=== PATIENT | male | born 1950 | race Two or more races ===

== ENCOUNTER → 2022-08-25 | Outpatient (CLI) | payer MEDICAID | END | disposition home or self-care (01) | LOC: LAB 09:45 | PROVIDERS: ATTEND Internal Medicine Pulmonary Disease | DX: Z01.812 Encounter for preprocedural laboratory examination (principal); Z20.822 Contact with and (suspected) exposure to COVID-19 | CPT/HCPCS: 36415; 87426 ==

== ENCOUNTER → 2022-08-26 | Outpatient (CLI) | payer MEDICAID ==
[~2022-08-26] MED LIST: ALBUTEROL MEDNEB 2.5 mg/3ml NEB ONE
== END | disposition home or self-care (01) ==
LOC: RT 07:50
PROVIDERS: ATTEND Internal Medicine Pulmonary Disease
DX: J44.9 Chronic obstructive pulmonary disease, unspecified (principal); R06.00 Dyspnea, unspecified
CPT/HCPCS: 94060; 94727; 94729

== ENCOUNTER 2023-01-06 11:26 | Inpatient (IN) | payer MEDICAID ==
[~2023-01-06] VITALS: Ht 160 cm; Wt 72.0 kg
[2023-01-06 12:08] LABS: Basophils # (auto) 0.1 10 ^3/uL (0-0.2); Basophils % (auto) 0.7 % (0.0-2.0); Eosinophils # (auto) 0.1 10 ^3/uL (0-0.8); Eosinophils % (auto) 1.3 % (0.0-7.0); Hematocrit 48.9 % (41.0-53.0); Hemoglobin 16.2 g/dL (13.5-17.5); Lymphocytes # (auto) 1.5 10 ^3/uL (0.4-5.4); Lymphocytes % (auto) 19.8 % (10.0-50.0); Mean Corpuscular Hgb Conc. 33.1 g/dL (32.0-36.0); Mean Corpuscular Volume 96.7 fL (80.0-100.0); Monocytes # (auto) 0.6 10 ^3/uL (0-1.3); Monocytes % (auto) 7.7 % (0.0-12.0); Neutrophils # (auto) 5.3 10 ^3/uL (1.6-8.6); Neutrophils % (auto) 70.5 % (37.0-80.0); Nucleated Red Blood Cells % 0.2 %; Red Blood Cells 5.06 10^6/uL (4.5-5.90); Red Cell Distribution Width 14.8 % (11.8-14.3); White Blood Cell 7.5 10^3/uL (4.4-10.8)
[2023-01-06] MEDS ORDERED: FUROSEMIDE 40 MG/4 ML VIAL IV ONE (12:45)
[2023-01-06 12:50] LABS: Albumin 3.6 g/dL (3.4-5.0); Calcium 8.8 mg/dL (8.5-10.1); Potassium 4.3 mmol/L (3.5-5.1)
[2023-01-06 12:53] LABS: BUN/Creatinine Ratio 18.3 (10.0-20.0); Total Protein 8.1 g/dL (6.4-8.2)
[2023-01-06] MEDS ORDERED: DexAMETHasone SOD PHOS 10MG/1ML VIAL INJ IV ONE (13:15)
[2023-01-06] MEDS ORDERED: AZITHROMYCIN 500MG/ 250ML 250 ML IV ONE (13:15)
[2023-01-06] MEDS ORDERED: cefTRIAXone 1GM/50ML D5W 50 ML IV ONE (13:15)
[2023-01-06] MEDS ORDERED: MORPHINE SULFATE INJ 2 MG/ml SYRG IV PRN (13:30)
[2023-01-06] MEDS ORDERED: NITROGLYCERIN 0.4 MG SL TAB SL PRN (13:30)
[2023-01-06] MEDS ORDERED: DILT-14 PO (13:55)
[2023-01-06] MEDS ORDERED: ROSU10TA64 PO (13:56)
[2023-01-06] MEDS ORDERED: ENAL1TAB48 PO (13:56)
[2023-01-06] MEDS ORDERED: FLUT1AER3 PO (13:56)
[2023-01-06] MEDS ORDERED: IPRATROPIUM BROM 0.5 MG/2.5ML INH SOL NEB PRN (14:00)
[2023-01-06] MEDS ORDERED: ALBUTEROL SULF 2.5 MG/0.5ML(0.5%) NEB SOLN NEB PRN (14:00)
[2023-01-06] MEDS ORDERED: DEXTROSE (50%) 50ML SYRG IV PRN (14:15)
[2023-01-06] MEDS: CLINDAMYCIN 300MG IV 50 ML IV SCH ×2 (15:59→22:27)
[2023-01-06 16:45] LABS: Urine Bacteria NONE SEEN /hpf (None Seen); Urine Blood Negative /uL (Negative); Urine Specific Gravity 1.009 (1.001-1.035); Urine WBC <1 /hpf (0 - 3)
[2023-01-06 17:34] LABS: Alcohol, Urine < 3.0 mg/dL (0-10); Amphetamine Screen, Urine NEGATIVE (NEGATIVE); Barbiturate Scree,Urine NEGATIVE (NEGATIVE); Benzodiazephine Screen, Urine NEGATIVE (NEGATIVE); Cannabinoid Screen, Urine NEGATIVE (NEGATIVE); Cocaine Screen, Urine NEGATIVE (NEGATIVE); Opiate Scree,Urine NEGATIVE (NEGATIVE); Phencyclidine Screen, Urine NEGATIVE (NEGATIVE)
[2023-01-06] MEDS: ACCU-CHEK COMFORT CURVE STRIP VI SCH ×2 (17:46→22:09)
[2023-01-06] MEDS: InsuLIN REG 1unit/0.01ml Soln (100units/ml) SC SCH ×2 (18:18→22:28)
[2023-01-06] MEDS ORDERED: IOHEXOL 350 MG/ML 100ML IJ ONE (18:30)
[2023-01-06] MEDS: ATORVASTATIN 20 MG TAB PO SCH (22:29)
[2023-01-07 02:22] VITALS: BP 126/87
[2023-01-07] MEDS: CLINDAMYCIN 300MG IV 50 ML IV SCH ×3 (06:15→22:11)
[2023-01-07 06:37] LABS: Basophils # (auto) 0 10 ^3/uL (0-0.2); Basophils % (auto) 0.1 % (0.0-2.0); Eosinophils # (auto) 0 10 ^3/uL (0-0.8); Hematocrit 45.3 % (41.0-53.0); Hemoglobin 15.3 g/dL (13.5-17.5); Lymphocytes # (auto) 0.8 10 ^3/uL (0.4-5.4); Lymphocytes % (auto) 24.6 % (10.0-50.0); Mean Corpuscular Hemoglobin 32.4 pg (28.0-32.0); Mean Corpuscular Hgb Conc. 33.7 g/dL (32.0-36.0); Mean Corpuscular Volume 96.2 fL (80.0-100.0); Monocytes # (auto) 0.1 10 ^3/uL (0-1.3); Monocytes % (auto) 3.2 % (0.0-12.0); Neutrophils # (auto) 2.3 10 ^3/uL (1.6-8.6); Neutrophils % (auto) 72.1 % (37.0-80.0); Nucleated Red Blood Cells % 0.2 %; Red Blood Cells 4.71 10^6/uL (4.5-5.90); Red Cell Distribution Width 14.6 % (11.8-14.3); White Blood Cell 3.2 10^3/uL (4.4-10.8)
[2023-01-07 06:48] LABS: Potassium 3.9 mmol/L (3.5-5.1)
[2023-01-07] MEDS: InsuLIN REG 1unit/0.01ml Soln (100units/ml) SC SCH ×4 (06:50→22:16)
[2023-01-07] MEDS: ACCU-CHEK COMFORT CURVE STRIP VI SCH ×4 (06:50→22:16)
[2023-01-07 07:02] LABS: Albumin 3.2 g/dL (3.4-5.0); BUN/Creatinine Ratio 20.3 (10.0-20.0); Bilirubin, Total 0.8 mg/dL (0.2-1.0); Calcium 8.8 mg/dL (8.5-10.1); Total Protein 7.8 g/dL (6.4-8.2)
[2023-01-07 09:04] LABS: Hepatitis B Surface Antibody Positive (Negative)
[2023-01-07] MEDS: cefTRIAXone 1GM/50ML D5W 50 ML IV SCH (09:52)
[2023-01-07] MEDS ORDERED: ENALAPRIL MALEATE 10 MG TAB PO SCH (10:00)
[2023-01-07] MEDS ORDERED: FUROSEMIDE 20 MG/2 ML VIAL IV SCH (10:00)
[2023-01-07] MEDS ORDERED: dilTIAZem 120MG ER CAP PO SCH (10:00)
[2023-01-07] MEDS: Fluticasone-Umeclidinium-Vilan (Trelegy Ellipta 100-62.5-25 Mcg/I PO SCH (10:00)
[2023-01-07] MEDS: PANTOPRAZOLE 40 MG/10 ML VIAL INJ IV SCH (11:39)
[2023-01-07] MEDS ORDERED: METOPROLOL TARTRATE 1MG/1ML-5ML VIAL IV PRN (14:00)
[2023-01-07] MEDS ORDERED: dilTIAZem HCL 50 MG/10 ML VIAL IV ONE (15:00)
[2023-01-07] MEDS ORDERED: methylPREDNISolone SOD SUCC 40 MG/ML VL IV ONE (15:45)
[2023-01-07] MEDS ORDERED: DIGOXIN (250MCG/ML) 2 ML AMPULE IV ONE (16:15)
[2023-01-07] MEDS ORDERED: ENOXAPARIN SOD 80 MG/0.8ML SYRINGE SC ONE (16:30)
[2023-01-07] MEDS ORDERED: METOPROLOL TARTRATE 1MG/1ML-5ML VIAL IV ONE (21:30)
[2023-01-07] MEDS ORDERED: METOPROLOL TARTRATE 25 MG TAB PO SCH (22:00)
[2023-01-07] MEDS: SACUBITRIL-VALSARTAN 24mg/26mg TAB PO SCH (22:11)
[2023-01-07] MEDS: CARVEDILOL 3.125 MG TAB PO SCH (22:13)
[2023-01-07] MEDS: ATORVASTATIN 20 MG TAB PO SCH (22:13)
[2023-01-07] MEDS: FUROSEMIDE 40 MG/4 ML VIAL IV SCH (23:37)
[2023-01-08] MEDS: ENOXAPARIN SOD 80 MG/0.8ML SYRINGE SC SCH ×2 (05:38→17:21)
[2023-01-08 06:12] LABS: Basophils # (auto) 0 10 ^3/uL (0-0.2); Basophils % (auto) 0.4 % (0.0-2.0); Eosinophils # (auto) 0 10 ^3/uL (0-0.8); Eosinophils % (auto) 0.3 % (0.0-7.0); Hematocrit 47.5 % (41.0-53.0); Hemoglobin 15.7 g/dL (13.5-17.5); Lymphocytes # (auto) 1.7 10 ^3/uL (0.4-5.4); Lymphocytes % (auto) 18.2 % (10.0-50.0); Mean Corpuscular Hgb Conc. 33.1 g/dL (32.0-36.0); Mean Corpuscular Volume 96.7 fL (80.0-100.0); Monocytes # (auto) 0.8 10 ^3/uL (0-1.3); Neutrophils # (auto) 6.9 10 ^3/uL (1.6-8.6); Neutrophils % (auto) 73.1 % (37.0-80.0); Nucleated Red Blood Cells % 0.1 %; Red Blood Cells 4.91 10^6/uL (4.5-5.90); Red Cell Distribution Width 14.9 % (11.8-14.3); White Blood Cell 9.5 10^3/uL (4.4-10.8)
[2023-01-08] MEDS: CLINDAMYCIN 300MG IV 50 ML IV SCH ×3 (06:13→22:46)
[2023-01-08] MEDS: FUROSEMIDE 40 MG/4 ML VIAL IV SCH (06:16)
[2023-01-08 06:28] LABS: BUN/Creatinine Ratio 27.2 (10.0-20.0); Potassium 3.8 mmol/L (3.5-5.1)
[2023-01-08] MEDS: ACCU-CHEK COMFORT CURVE STRIP VI SCH ×4 (07:22→22:40)
[2023-01-08] MEDS: EMPAGLIFLOZIN 10 MG TAB PO SCH (07:22)
[2023-01-08] MEDS: InsuLIN REG 1unit/0.01ml Soln (100units/ml) SC SCH ×4 (07:23→22:56)
[2023-01-08 08:15] LABS: INR 1.65 (0.9-1.15); Partial Thromboplastin Time 29.9 sec (24.6-33.4)
[2023-01-08 09:40] VITALS: BP 105/59
[2023-01-08] MEDS: Fluticasone-Umeclidinium-Vilan (Trelegy Ellipta 100-62.5-25 Mcg/I PO SCH (10:00)
[2023-01-08] MEDS ORDERED: methylPREDNISolone SOD SUCC 40 MG/ML VL IV SCH (10:00)
[2023-01-08 10:25] LABS: INR 1.69 (0.9-1.15); Partial Thromboplastin Time 32.3 sec (24.6-33.4)
[2023-01-08] MEDS: cefTRIAXone 1GM/50ML D5W 50 ML IV SCH (10:47)
[2023-01-08] MEDS: PANTOPRAZOLE 40 MG/10 ML VIAL INJ IV SCH (10:48)
[2023-01-08] MEDS: CARVEDILOL 3.125 MG TAB PO SCH ×2 (10:59→22:33)
[2023-01-08] MEDS: DIGOXIN 0.125 MG TAB PO SCH (10:59)
[2023-01-08] MEDS: SACUBITRIL-VALSARTAN 24mg/26mg TAB PO SCH ×2 (11:01→22:31)
[2023-01-08] MEDS: DexAMETHasone SOD PHOS 10MG/1ML VIAL INJ IM SCH (11:20)
[2023-01-08] MEDS ORDERED: LACTULOSE 20Gm/30ML SOLN PO PRN (11:30)
[2023-01-08 12:51] VITALS: BP 109/69
[2023-01-08 16:35] VITALS: BP 104/70
[2023-01-08] MEDS ORDERED: METOPROLOL TARTRATE 1MG/1ML-5ML VIAL IV ONE (18:45)
[2023-01-08 19:19] LABS: Phosphorus 4.6 mg/dL (2.5-4.90)
[2023-01-08] MEDS ORDERED: HYDROcodone-ACET 5/325MG TAB PO PRN (20:30)
[2023-01-08 22:00] VITALS: BP 104/72
[2023-01-08] MEDS: ATORVASTATIN 20 MG TAB PO SCH (22:32)
[2023-01-09] VITALS (7 sets, daily range): BP systolic 107–127; BP diastolic 70–88
[2023-01-09] MEDS: ENOXAPARIN SOD 80 MG/0.8ML SYRINGE SC SCH ×2 (04:53→16:02)
[2023-01-09] MEDS: FUROSEMIDE 40 MG/4 ML VIAL IV SCH ×2 (06:21→17:52)
[2023-01-09] MEDS: CLINDAMYCIN 300MG IV 50 ML IV SCH ×3 (06:27→21:18)
[2023-01-09] MEDS: ACCU-CHEK COMFORT CURVE STRIP VI SCH ×4 (06:37→21:19)
[2023-01-09] MEDS: EMPAGLIFLOZIN 10 MG TAB PO SCH (06:37)
[2023-01-09] MEDS: InsuLIN REG 1unit/0.01ml Soln (100units/ml) SC SCH ×4 (06:41→21:24)
[2023-01-09 06:50] LABS: Basophils # (auto) 0 10 ^3/uL (0-0.2); Basophils % (auto) 0.2 % (0.0-2.0); Eosinophils # (auto) 0 10 ^3/uL (0-0.8); Hematocrit 49.7 % (41.0-53.0); Hemoglobin 16.7 g/dL (13.5-17.5); Lymphocytes # (auto) 1.4 10 ^3/uL (0.4-5.4); Lymphocytes % (auto) 22.6 % (10.0-50.0); Mean Corpuscular Hgb Conc. 33.5 g/dL (32.0-36.0); Mean Corpuscular Volume 95.3 fL (80.0-100.0); Monocytes # (auto) 0.4 10 ^3/uL (0-1.3); Monocytes % (auto) 6.6 % (0.0-12.0); Neutrophils # (auto) 4.4 10 ^3/uL (1.6-8.6); Neutrophils % (auto) 70.6 % (37.0-80.0); Nucleated Red Blood Cells % 0.1 %; Red Blood Cells 5.21 10^6/uL (4.5-5.90); Red Cell Distribution Width 14.9 % (11.8-14.3); White Blood Cell 6.2 10^3/uL (4.4-10.8)
[2023-01-09 07:04] LABS: BUN/Creatinine Ratio 25.3 (10.0-20.0); Calcium 8.7 mg/dL (8.5-10.1)
[2023-01-09] MEDS: SACUBITRIL-VALSARTAN 24mg/26mg TAB PO SCH ×2 (09:27→21:18)
[2023-01-09] MEDS: DIGOXIN 0.125 MG TAB PO SCH (09:28)
[2023-01-09] MEDS: CARVEDILOL 3.125 MG TAB PO SCH ×2 (09:29→20:25)
[2023-01-09] MEDS: DexAMETHasone SOD PHOS 10MG/1ML VIAL INJ IM SCH (09:30)
[2023-01-09] MEDS: PANTOPRAZOLE 40 MG/10 ML VIAL INJ IV SCH (09:30)
[2023-01-09] MEDS: cefTRIAXone 1GM/50ML D5W 50 ML IV SCH (09:30)
[2023-01-09] MEDS: Fluticasone-Umeclidinium-Vilan (Trelegy Ellipta 100-62.5-25 Mcg/I PO SCH (09:31)
[2023-01-09] MEDS: ATORVASTATIN 20 MG TAB PO SCH (20:23)
[2023-01-09] MEDS ORDERED: METOPROLOL TARTRATE 1MG/1ML-5ML VIAL IV ONE (22:15)
[2023-01-10 05:00] VITALS: BP 128/86
[2023-01-10] MEDS: ENOXAPARIN SOD 80 MG/0.8ML SYRINGE SC SCH ×2 (05:33→16:09)
[2023-01-10] MEDS: CLINDAMYCIN 300MG IV 50 ML IV SCH (05:35)
[2023-01-10] MEDS: FUROSEMIDE 40 MG/4 ML VIAL IV SCH ×2 (05:36→17:17)
[2023-01-10] MEDS: InsuLIN REG 1unit/0.01ml Soln (100units/ml) SC SCH ×4 (05:41→21:10)
[2023-01-10] MEDS: ACCU-CHEK COMFORT CURVE STRIP VI SCH ×4 (05:41→21:05)
[2023-01-10] MEDS: EMPAGLIFLOZIN 10 MG TAB PO SCH (05:42)
[2023-01-10 08:45] VITALS: BP 158/79
[2023-01-10] MEDS: cefTRIAXone 1GM/50ML D5W 50 ML IV SCH (09:22)
[2023-01-10] MEDS: PANTOPRAZOLE 40 MG/10 ML VIAL INJ IV SCH (09:22)
[2023-01-10] MEDS: DIGOXIN 0.125 MG TAB PO SCH (09:23)
[2023-01-10] MEDS: DexAMETHasone SOD PHOS 10MG/1ML VIAL INJ IM SCH (09:23)
[2023-01-10] MEDS: CARVEDILOL 3.125 MG TAB PO SCH ×2 (09:23→21:11)
[2023-01-10] MEDS: SACUBITRIL-VALSARTAN 24mg/26mg TAB PO SCH ×2 (09:23→21:12)
[2023-01-10] MEDS: Fluticasone-Umeclidinium-Vilan (Trelegy Ellipta 100-62.5-25 Mcg/I PO SCH (09:23)
[2023-01-10 13:00] VITALS: BP 112/75
[2023-01-10] MEDS: CLINDAMYCIN HCL 150 MG CAP PO SCH ×3 (14:38→23:48)
[2023-01-10 17:00] VITALS: BP 122/88
[2023-01-10] MEDS: ATORVASTATIN 20 MG TAB PO SCH (21:11)
[2023-01-10 22:00] VITALS: BP 142/75
[2023-01-11 05:00] VITALS: BP 100/66
[2023-01-11] MEDS: FUROSEMIDE 40 MG/4 ML VIAL IV SCH ×2 (05:33→17:30)
[2023-01-11] MEDS: CLINDAMYCIN HCL 150 MG CAP PO SCH ×3 (05:56→17:30)
[2023-01-11] MEDS: ACCU-CHEK COMFORT CURVE STRIP VI SCH ×4 (05:56→22:02)
[2023-01-11] MEDS: EMPAGLIFLOZIN 10 MG TAB PO SCH (05:56)
[2023-01-11] MEDS: ENOXAPARIN SOD 80 MG/0.8ML SYRINGE SC SCH ×2 (05:56→17:01)
[2023-01-11] MEDS: InsuLIN REG 1unit/0.01ml Soln (100units/ml) SC SCH ×4 (06:02→22:00)
[2023-01-11 09:00] VITALS: BP 130/87
[2023-01-11] MEDS: cefTRIAXone 1GM/50ML D5W 50 ML IV SCH (09:44)
[2023-01-11] MEDS: DexAMETHasone SOD PHOS 10MG/1ML VIAL INJ IM SCH (09:44)
[2023-01-11] MEDS: SACUBITRIL-VALSARTAN 24mg/26mg TAB PO SCH ×2 (09:44→21:59)
[2023-01-11] MEDS: PANTOPRAZOLE 40 MG/10 ML VIAL INJ IV SCH (09:44)
[2023-01-11] MEDS: DIGOXIN 0.125 MG TAB PO SCH (09:45)
[2023-01-11] MEDS: CARVEDILOL 3.125 MG TAB PO SCH ×2 (09:46→22:01)
[2023-01-11] MEDS: Fluticasone-Umeclidinium-Vilan (Trelegy Ellipta 100-62.5-25 Mcg/I PO SCH (09:46)
[2023-01-11 13:00] VITALS: BP 106/70
[2023-01-11 17:00] VITALS: BP 124/90
[2023-01-11] MEDS: ATORVASTATIN 20 MG TAB PO SCH (21:59)
[2023-01-11 22:00] VITALS: BP 114/63
[2023-01-12] MEDS: CLINDAMYCIN HCL 150 MG CAP PO SCH ×5 (01:53→23:17)
[2023-01-12 05:00] VITALS: BP 114/80
[2023-01-12 05:39] LABS: Basophils # (auto) 0 10 ^3/uL (0-0.2); Eosinophils # (auto) 0.3 10 ^3/uL (0-0.8); Eosinophils % (auto) 3.5 % (0.0-7.0); Lymphocytes # (auto) 3.1 10 ^3/uL (0.4-5.4); Monocytes # (auto) 0.8 10 ^3/uL (0-1.3); Nucleated Red Blood Cells % 0.3 %
[2023-01-12 05:43] LABS: Basophils % (auto) 0.3 % (0.0-2.0); Hemoglobin 18.4 g/dL (13.5-17.5); Lymphocytes % (auto) 36.4 % (10.0-50.0); Mean Corpuscular Hemoglobin 32.2 pg (28.0-32.0); Mean Corpuscular Hgb Conc. 33.4 g/dL (32.0-36.0); Mean Corpuscular Volume 96.5 fL (80.0-100.0); Monocytes % (auto) 9.4 % (0.0-12.0); Neutrophils # (auto) 4.3 10 ^3/uL (1.6-8.6); Neutrophils % (auto) 50.4 % (37.0-80.0); Red Cell Distribution Width 15.1 % (11.8-14.3); White Blood Cell 8.5 10^3/uL (4.4-10.8)
[2023-01-12 06:01] LABS: BUN/Creatinine Ratio 28.4 (10.0-20.0); Calcium 8.3 mg/dL (8.5-10.1); Potassium 4.3 mmol/L (3.5-5.1)
[2023-01-12] MEDS: ENOXAPARIN SOD 80 MG/0.8ML SYRINGE SC SCH ×2 (06:26→15:49)
[2023-01-12] MEDS: FUROSEMIDE 40 MG/4 ML VIAL IV SCH ×2 (06:29→18:17)
[2023-01-12] MEDS: InsuLIN REG 1unit/0.01ml Soln (100units/ml) SC SCH ×4 (06:30→22:10)
[2023-01-12] MEDS: EMPAGLIFLOZIN 10 MG TAB PO SCH (06:30)
[2023-01-12] MEDS: ACCU-CHEK COMFORT CURVE STRIP VI SCH ×4 (06:30→22:07)
[2023-01-12 08:39] VITALS: BP 105/77
[2023-01-12] MEDS: PANTOPRAZOLE 40 MG/10 ML VIAL INJ IV SCH (09:22)
[2023-01-12] MEDS: cefTRIAXone 1GM/50ML D5W 50 ML IV SCH (09:22)
[2023-01-12] MEDS: DIGOXIN 0.125 MG TAB PO SCH (09:27)
[2023-01-12] MEDS: Fluticasone-Umeclidinium-Vilan (Trelegy Ellipta 100-62.5-25 Mcg/I PO SCH (10:00)
[2023-01-12 12:29] VITALS: BP 115/73
[2023-01-12] MEDS ORDERED: CARVEDILOL 3.125 MG TAB PO ONE (14:15)
[2023-01-12 17:10] VITALS: BP 111/76
[2023-01-12 22:00] VITALS: BP 112/66
[2023-01-12] MEDS: SACUBITRIL-VALSARTAN 24mg/26mg TAB PO SCH (22:06)
[2023-01-12] MEDS: CARVEDILOL 3.125 MG TAB PO SCH (22:07)
[2023-01-12] MEDS: ATORVASTATIN 20 MG TAB PO SCH (22:07)
[2023-01-13] VITALS (11 sets, daily range): BP systolic 78–135; BP diastolic 47–97
[2023-01-13] MEDS: CLINDAMYCIN HCL 150 MG CAP PO SCH ×3 (06:00→18:11)
[2023-01-13] MEDS: FUROSEMIDE 40 MG/4 ML VIAL IV SCH ×2 (06:44→18:11)
[2023-01-13] MEDS: ENOXAPARIN SOD 80 MG/0.8ML SYRINGE SC SCH ×2 (06:44→18:07)
[2023-01-13] MEDS: EMPAGLIFLOZIN 10 MG TAB PO SCH (06:53)
[2023-01-13] MEDS: ACCU-CHEK COMFORT CURVE STRIP VI SCH ×4 (06:53→22:07)
[2023-01-13] MEDS: InsuLIN REG 1unit/0.01ml Soln (100units/ml) SC SCH ×4 (06:54→22:00)
[2023-01-13] MEDS ORDERED: REGADENOSON 0.4 MG/5 ML SYRG IV ONE ×2 (08:12→08:15)
[2023-01-13] MEDS: PANTOPRAZOLE 40 MG/10 ML VIAL INJ IV SCH (09:11)
[2023-01-13] MEDS: cefTRIAXone 1GM/50ML D5W 50 ML IV SCH (09:12)
[2023-01-13] MEDS: Fluticasone-Umeclidinium-Vilan (Trelegy Ellipta 100-62.5-25 Mcg/I PO SCH (09:12)
[2023-01-13] MEDS: DIGOXIN 0.125 MG TAB PO SCH (09:15)
[2023-01-13] MEDS: CARVEDILOL 3.125 MG TAB PO SCH ×2 (09:16→22:04)
[2023-01-13] MEDS: SACUBITRIL-VALSARTAN 24mg/26mg TAB PO SCH ×2 (10:00→22:00)
[2023-01-13] MEDS ORDERED: AMIODARONE HCL 150 MG in D5W 5% 100 ML IV ONE (10:30)
[2023-01-13] MEDS ORDERED: METOPROLOL TARTRATE 1MG/1ML-5ML VIAL IV PRN ×2 (10:45→11:30)
[2023-01-13] MEDS ORDERED: AMIODARONE 450mg/250ml AE 250 ML IV SCH ×2 (10:45→16:45)
[2023-01-13] MEDS ORDERED: IPRATROPIUM BROM 0.5 MG/2.5ML INH SOL NEB PRN (13:15)
[2023-01-13] MEDS ORDERED: ALBUTEROL SULF 2.5 MG/0.5ML(0.5%) NEB SOLN NEB PRN (13:15)
[2023-01-13] MEDS: ATORVASTATIN 20 MG TAB PO SCH (22:04)
[2023-01-14] MEDS: CLINDAMYCIN HCL 150 MG CAP PO SCH ×4 (00:19→17:52)
[2023-01-14 05:00] VITALS: BP 121/83
[2023-01-14] MEDS: ENOXAPARIN SOD 80 MG/0.8ML SYRINGE SC SCH ×2 (05:10→16:08)
[2023-01-14] MEDS: FUROSEMIDE 40 MG/4 ML VIAL IV SCH ×2 (05:44→17:53)
[2023-01-14] MEDS: InsuLIN REG 1unit/0.01ml Soln (100units/ml) SC SCH ×4 (05:45→21:32)
[2023-01-14] MEDS: ACCU-CHEK COMFORT CURVE STRIP VI SCH ×4 (05:47→21:32)
[2023-01-14 05:58] LABS: Basophils # (auto) 0 10 ^3/uL (0-0.2); Basophils % (auto) 0.5 % (0.0-2.0); Eosinophils # (auto) 0.6 10 ^3/uL (0-0.8); Eosinophils % (auto) 9.5 % (0.0-7.0); Hematocrit 51.2 % (41.0-53.0); Hemoglobin 17.2 g/dL (13.5-17.5); Lymphocytes # (auto) 2.2 10 ^3/uL (0.4-5.4); Lymphocytes % (auto) 33.7 % (10.0-50.0); Mean Corpuscular Hgb Conc. 33.6 g/dL (32.0-36.0); Mean Corpuscular Volume 95.1 fL (80.0-100.0); Monocytes # (auto) 0.6 10 ^3/uL (0-1.3); Monocytes % (auto) 9.6 % (0.0-12.0); Neutrophils # (auto) 3.1 10 ^3/uL (1.6-8.6); Neutrophils % (auto) 46.7 % (37.0-80.0); Nucleated Red Blood Cells % 0.3 %; Red Blood Cells 5.39 10^6/uL (4.5-5.90); White Blood Cell 6.6 10^3/uL (4.4-10.8)
[2023-01-14 06:19] LABS: BUN/Creatinine Ratio 26.9 (10.0-20.0)
[2023-01-14] MEDS ORDERED: REGADENOSON 0.4 MG/5 ML SYRG IV ONE ×2 (08:50→09:15)
[2023-01-14 09:00] VITALS: BP 142/67
[2023-01-14] MEDS: EMPAGLIFLOZIN 10 MG TAB PO SCH (11:05)
[2023-01-14] MEDS: PANTOPRAZOLE 40 MG/10 ML VIAL INJ IV SCH (11:06)
[2023-01-14] MEDS: Fluticasone-Umeclidinium-Vilan (Trelegy Ellipta 100-62.5-25 Mcg/I PO SCH (11:06)
[2023-01-14] MEDS: DIGOXIN 0.125 MG TAB PO SCH (11:07)
[2023-01-14] MEDS: SACUBITRIL-VALSARTAN 24mg/26mg TAB PO SCH ×2 (11:07→21:25)
[2023-01-14] MEDS: CARVEDILOL 3.125 MG TAB PO SCH ×2 (11:07→21:34)
[2023-01-14 13:00] VITALS: BP 111/74
[2023-01-14 17:00] VITALS: BP 109/75
[2023-01-14] MEDS: ATORVASTATIN 20 MG TAB PO SCH (21:33)
[2023-01-14 22:00] VITALS: BP 120/68
[2023-01-15] MEDS: CLINDAMYCIN HCL 150 MG CAP PO SCH ×3 (00:23→12:31)
[2023-01-15 05:00] VITALS: BP 124/75
[2023-01-15] MEDS: ENOXAPARIN SOD 80 MG/0.8ML SYRINGE SC SCH (05:16)
[2023-01-15] MEDS: EMPAGLIFLOZIN 10 MG TAB PO SCH (06:21)
[2023-01-15] MEDS: FUROSEMIDE 40 MG/4 ML VIAL IV SCH (06:21)
[2023-01-15] MEDS: ACCU-CHEK COMFORT CURVE STRIP VI SCH ×2 (06:22→12:31)
[2023-01-15 06:29] LABS: Basophils # (auto) 0 10 ^3/uL (0-0.2); Basophils % (auto) 0.5 % (0.0-2.0); Eosinophils # (auto) 0.7 10 ^3/uL (0-0.8); Eosinophils % (auto) 9.1 % (0.0-7.0); Hematocrit 48.8 % (41.0-53.0); Hemoglobin 16.6 g/dL (13.5-17.5); Lymphocytes # (auto) 2.3 10 ^3/uL (0.4-5.4); Lymphocytes % (auto) 31.1 % (10.0-50.0); Mean Corpuscular Hemoglobin 31.9 pg (28.0-32.0); Mean Corpuscular Volume 93.7 fL (80.0-100.0); Monocytes # (auto) 0.7 10 ^3/uL (0-1.3); Monocytes % (auto) 9.3 % (0.0-12.0); Neutrophils # (auto) 3.7 10 ^3/uL (1.6-8.6); Nucleated Red Blood Cells % 0.1 %; Red Blood Cells 5.21 10^6/uL (4.5-5.90); Red Cell Distribution Width 14.9 % (11.8-14.3); White Blood Cell 7.4 10^3/uL (4.4-10.8)
[2023-01-15 06:42] LABS: Potassium 3.8 mmol/L (3.5-5.1)
[2023-01-15] MEDS: InsuLIN REG 1unit/0.01ml Soln (100units/ml) SC SCH ×2 (06:42→12:09)
[2023-01-15 06:50] LABS: BUN/Creatinine Ratio 28.6 (10.0-20.0); Calcium 8.1 mg/dL (8.5-10.1)
[2023-01-15 09:00] VITALS: BP 118/73
[2023-01-15] MEDS: Fluticasone-Umeclidinium-Vilan (Trelegy Ellipta 100-62.5-25 Mcg/I PO SCH (10:29)
[2023-01-15] MEDS: PANTOPRAZOLE 40 MG/10 ML VIAL INJ IV SCH (10:29)
[2023-01-15] MEDS: SACUBITRIL-VALSARTAN 24mg/26mg TAB PO SCH (10:30)
[2023-01-15] MEDS: CARVEDILOL 3.125 MG TAB PO SCH (10:31)
[2023-01-15] MEDS: DIGOXIN 0.125 MG TAB PO SCH (10:31)
[2023-01-15] MEDS ORDERED: FURO1TAB33 PO (11:06)
[2023-01-15] MEDS ORDERED: DIGO1TAB48 PO (11:06)
[2023-01-15] MEDS ORDERED: CAR3125T PO (11:06)
[2023-01-15] MEDS ORDERED: APIX5TAB PO (11:06)
[2023-01-15] MEDS ORDERED: EMPA1TAB PO (11:07)
[2023-01-15] MEDS ORDERED: SACU1TAB PO (11:07)
[2023-01-15 13:00] VITALS: BP 107/63
[2023-01-15 14:25] VITALS: BP 118/73
== END 2023-01-15 15:15 | disposition home or self-care (01) | DRG 137 ==
LOC: ER 11:26 → TELE 13:55 → TELE-WESTW 01-08 09:08
PROVIDERS: ADMIT Nurse Practitioner Family; ATTEND Internal Medicine Pulmonary Disease
PROC: 0W993ZZ Drainage of Right Pleural Cavity, Percutaneous Approach (ICD-10-PCS; principal; 2023-01-08)
DX: J15.6 Pneumonia due to other Gram-negative bacteria (principal); J96.21 Acute and chronic respiratory failure with hypoxia; I50.43 Acute on chronic combined systolic (congestive) and diastolic (congestive) heart failure; J15.9 Unspecified bacterial pneumonia; K70.31 Alcoholic cirrhosis of liver with ascites; I48.92 Unspecified atrial flutter; J44.0 Chronic obstructive pulmonary disease with (acute) lower respiratory infection; I50.82 Biventricular heart failure; I11.0 Hypertensive heart disease with heart failure; J44.1 Chronic obstructive pulmonary disease with (acute) exacerbation; E78.5 Hyperlipidemia, unspecified; E11.9 Type 2 diabetes mellitus without complications; F10.20 Alcohol dependence, uncomplicated; E66.01 Morbid (severe) obesity due to excess calories; I48.91 Unspecified atrial fibrillation; K59.00 Constipation, unspecified; S91.002A Unspecified open wound, left ankle, initial encounter; X58.XXXA Exposure to other specified factors, initial encounter; Y93.89 Activity, other specified; Y92.89 Other specified places as the place of occurrence of the external cause; Y99.8 Other external cause status; Z68.28 Body mass index [BMI] 28.0-28.9, adult
CPT/HCPCS: 36415; 71045; 71275; 73600; 76604; 76705; 76942; 78452; 80048; 80053; 80061; 80162; 80307; 81001; 82306; 82962; 83036; 83605; 83735; 83880; 83986; 84100; 84443; 84484; 85025; 85379; 85610; 85730; 86703; 86706; 86803; 87040; 87205; 87340; 89051; 93005; 93017; 93306; 93970; 99291; C9113; G0378; J0696; J1100; J1815; J3490; J7060

== ENCOUNTER → 2023-05-17 | Outpatient (CLI) | payer MEDICAID ==
[~2023-05-17] MED LIST changes: -ALBUTEROL MEDNEB 2.5 mg/3ml NEB ONE; +APIX5TAB PO; +BUDE1AER5 IN; +CARV6.25 PO; +DIGO1TAB48 PO; +EMPA1TAB PO; +ENAL1TAB48 PO; +FLUT1AER3 PO; +ROSU10TA64 PO; +SACU1TAB PO
== END | disposition home or self-care (01) ==
LOC: XYW 08:02
PROVIDERS: ATTEND Internal Medicine
DX: I07.1 Rheumatic tricuspid insufficiency (principal); I27.20 Pulmonary hypertension, unspecified
CPT/HCPCS: 93306

== ENCOUNTER → 2023-10-18 | Outpatient (CLI) | payer MEDICAID | END | disposition home or self-care (01) | LOC: XYW 08:22 | PROVIDERS: ATTEND Internal Medicine | DX: I27.20 Pulmonary hypertension, unspecified (principal); Z79.899 Other long term (current) drug therapy | CPT/HCPCS: 93306 ==

== ENCOUNTER → 2024-05-22 | Outpatient (CLI) | payer OTHER, MEDICAID ==
[~2024-05-22] MED LIST changes: +ALBUTEROL SULF 2.5 MG/0.5ML(0.5%) NEB SOLN ONE; -CARV6.25 PO; +CARV6.2517 PO
== END | disposition home or self-care (01) ==
LOC: RT 11:11
PROVIDERS: ATTEND Internal Medicine Pulmonary Disease
DX: Z01.818 Encounter for other preprocedural examination (principal); J44.9 Chronic obstructive pulmonary disease, unspecified; J84.9 Interstitial pulmonary disease, unspecified; R06.00 Dyspnea, unspecified
CPT/HCPCS: 94060; 94727; 94729

== ENCOUNTER → 2025-02-21 | Outpatient (CLI) | payer OTHER, MEDICAID ==
[~2025-02-21] MED LIST changes: -ALBUTEROL SULF 2.5 MG/0.5ML(0.5%) NEB SOLN ONE
== END | disposition home or self-care (01) ==
LOC: RT 10:55
PROVIDERS: ATTEND Internal Medicine Pulmonary Disease
DX: I27.20 Pulmonary hypertension, unspecified (principal); R06.00 Dyspnea, unspecified; Z79.899 Other long term (current) drug therapy
CPT/HCPCS: 94618